=== PATIENT | female | born 1965 | race Caucasian/White ===

== ENCOUNTER 2017-01-10 19:42 | Outpatient (CLI) | payer MEDICARE | END 2017-01-10 19:43 | disposition home or self-care (01) | DX: E11.9 Type 2 diabetes mellitus without complications (principal); E55.9 Vitamin D deficiency, unspecified; I26.99 Other pulmonary embolism without acute cor pulmonale; E03.9 Hypothyroidism, unspecified ==

== ENCOUNTER 2017-04-28 08:00 | Outpatient (CLI) | payer MEDICARE ==
[2017-04-28 19:40] LABS: BUN - BLOOD UREA NITROGEN 14 mg/dL (6-20); CALCIUM 9.1 mg/dL (8.5-10.3); CARBON DIOXIDE - CO2 28 mmol/L (21-32); CHLORIDE 101 mmol/L (101-111); CREATININE 0.7 mg/dL (0.4-1.0); GFR - MDRD 88 (>89); GLUCOSE 164 mg/dL (70-100); SODIUM 137 mmol/L (135-145)
[2017-04-28 20:20] LABS: THYROID STIMULATING HORMONE 0.11 uIU/mL (0.34-5.60)
[2017-04-28 20:22] LABS: HEMOGLOBIN A1C 0.84 g/dL
== END 2017-04-28 08:01 | disposition home or self-care (01) ==
LOC: LAB.N 08:00
PROVIDERS: ATTEND Family Medicine
DX: E55.9 Vitamin D deficiency, unspecified (principal); E11.9 Type 2 diabetes mellitus without complications; E03.9 Hypothyroidism, unspecified
CPT/HCPCS: 36415; 80048; 83036; 84439; 84443

== ENCOUNTER 2017-08-15 13:52 | Outpatient (CLI) | payer MEDICARE ==
[2017-08-15 19:07] LABS: HEMOGLOBIN A1C 0.99 g/dL
[2017-08-15 19:17] LABS: CALCIUM 9.7 mg/dL (8.5-10.3); CREATININE 0.7 mg/dL (0.4-1.0); POTASSIUM 4.3 mmol/L (3.5-5.0)
[2017-08-15 19:41] LABS: THYROID STIMULATING HORMONE 2.92 uIU/mL (0.34-5.60)
== END 2017-08-15 13:53 | disposition home or self-care (01) ==
LOC: LAB.N 13:52
PROVIDERS: ATTEND Family Medicine
DX: E03.9 Hypothyroidism, unspecified (principal); E11.9 Type 2 diabetes mellitus without complications
CPT/HCPCS: 36415; 80048; 83036; 84439; 84443

== ENCOUNTER 2017-12-31 09:27 | Outpatient (CLI) | payer MEDICARE | END 2017-12-31 09:28 | disposition EMS.NT | LOC: EMS 09:27 | PROVIDERS: ATTEND Surgery | DX: S71.132A Puncture wound without foreign body, left thigh, initial encounter (principal); W55.03XA Scratched by cat, initial encounter ==

== ENCOUNTER 2018-01-16 08:00 | Outpatient (CLI) | payer MEDICARE ==
[2018-01-16 19:24] LABS: CALCIUM 9.4 mg/dL (8.5-10.3); CREATININE 0.6 mg/dL (0.4-1.0)
[2018-01-16 19:32] LABS: HB2 TOTAL 17.3 g/dL; HEMOGLOBIN A1C 1.01 g/dL; HEMOGLOBIN A1C % 7.5 % (4.6-6.2)
== END 2018-01-16 08:01 | disposition home or self-care (01) ==
LOC: LAB.N 08:00
PROVIDERS: ATTEND Family Medicine
DX: I10 Essential (primary) hypertension (principal); E11.9 Type 2 diabetes mellitus without complications
CPT/HCPCS: 36415; 80048; 83036

== ENCOUNTER 2018-04-23 08:00 | Outpatient (CLI) | payer MEDICARE ==
[2018-04-23 18:56] LABS: BASOPHILS % (AUTO) 0.5 %; EOSINOPHILS # (AUTO) 0.2 10^3/uL (0.0-0.7); HGB - HEMOGLOBIN 14.9 g/dL (12.0-16.0); LYMPHOCYTES % (AUTO) 31.3 %; MEAN CORPUSCULAR HEMOGLOBIN 27.3 pg (27.0-31.0); MEAN CORPUSCULAR HGB CONC 32.6 g/dL (32.0-36.0); MEAN CORPUSCULAR VOLUME 83.8 fL (81.0-99.0); MEAN PLATELET VOLUME 8.7 fL (7.9-10.8); MONOCYTES # (AUTO) 0.6 10^3/uL (0.0-1.0); MONOCYTES % (AUTO) 6.5 %; NEUTROPHILS # (AUTO) 5.7 10^3/uL (1.5-6.6); NEUTROPHILS % (AUTO) 59.7 %; PLT - PLATELET COUNT 247 10^3/uL (130-450); RED BLOOD COUNT 5.45 10^6/uL (4.20-5.40); RED CELL DISTRIBUTION WIDTH 15.5 % (12.0-15.0); WHITE BLOOD COUNT 9.5 x10^3/uL (4.8-10.8)
[2018-04-23 19:48] LABS: ALBUMIN 3.6 g/dL (3.2-5.5); ALBUMIN/GLOBULIN RATIO 0.9 (1.0-2.2); ALKALINE PHOSPHATASE 69 IU/L (42-121); ALT ALANINE AMINOTRANSFERASE 30 IU/L (10-60); AST ASPARTATE AMINOTRANSFERASE 31 IU/L (10-42); BILIRUBIN,TOTAL 0.7 mg/dL (0.2-1.0); BUN - BLOOD UREA NITROGEN 12 mg/dL (6-20); CALCIUM 9.4 mg/dL (8.5-10.3); CARBON DIOXIDE - CO2 30 mmol/L (21-32); CHLORIDE 100 mmol/L (101-111); CHOL/HDL RATIO 3.4 (<4.4); CHOLESTEROL 219 mg/dL; CREATININE 0.7 mg/dL (0.4-1.0); GFR - MDRD 88 (>89); GLUCOSE 135 mg/dL (70-100); HDL CHOLESTEROL 65 mg/dL; LDL CHOLESTEROL,CALCULATED 130 mg/dL; SODIUM 139 mmol/L (135-145); TOTAL PROTEIN 7.8 g/dL (6.7-8.2); VLDL CHOLESTEROL 24 mg/dL
[2018-04-23 19:56] LABS: THYROID STIMULATING HORMONE < 0.08 uIU/mL (0.34-5.60)
[2018-04-23 19:58] LABS: FREE T4 (FREE THYROXINE) 1.34 ng/dL (0.58-1.64)
[2018-04-23 20:33] LABS: HB2 TOTAL 15.8 g/dL; HEMOGLOBIN A1C 0.95 g/dL; HEMOGLOBIN A1C % 7.7 % (4.6-6.2)
== END 2018-04-23 08:01 ==
LOC: LAB.N 08:00
PROVIDERS: ATTEND Family Medicine
DX: E11.9 Type 2 diabetes mellitus without complications (principal); I10 Essential (primary) hypertension; E03.9 Hypothyroidism, unspecified
CPT/HCPCS: 36415; 80053; 80061; 83036; 83721; 84439; 84443; 85025

== ENCOUNTER 2018-06-19 08:00 | Outpatient (CLI) | payer MEDICARE ==
[2018-06-19 19:39] LABS: THYROID STIMULATING HORMONE 0.76 uIU/mL (0.34-5.60)
[2018-06-19 19:41] LABS: FREE T4 (FREE THYROXINE) 0.86 ng/dL (0.58-1.64)
== END 2018-06-19 08:01 | disposition home or self-care (01) ==
LOC: LAB.N 08:00
PROVIDERS: ATTEND Family Medicine
DX: E03.9 Hypothyroidism, unspecified (principal)
CPT/HCPCS: 36415; 84439; 84443

== ENCOUNTER 2018-08-31 13:20 | Outpatient (CLI) | payer MEDICARE ==
[2018-08-31 17:48] LABS: HB2 TOTAL 16.2 g/dL; HEMOGLOBIN A1C 0.93 g/dL; HEMOGLOBIN A1C % 7.4 % (4.6-6.2)
== END 2018-08-31 23:59 | disposition home or self-care (01) ==
LOC: LAB.N 13:20
PROVIDERS: ATTEND Family Medicine
DX: E11.9 Type 2 diabetes mellitus without complications (principal)
CPT/HCPCS: 36415; 83036

== ENCOUNTER 2019-02-15 08:00 | Outpatient (CLI) | payer MEDICARE ==
[2019-02-15 18:55] LABS: CALCIUM 9.5 mg/dL (8.5-10.3); CREATININE 0.6 mg/dL (0.4-1.0)
[2019-02-15 19:15] LABS: HB2 TOTAL 16.7 g/dL; HEMOGLOBIN A1C 1.03 g/dL; HEMOGLOBIN A1C % 7.8 % (4.6-6.2)
== END 2019-02-15 23:59 | disposition home or self-care (01) ==
LOC: LAB.N 08:00
PROVIDERS: ATTEND Physician Assistant Medical
DX: E66.9 Obesity, unspecified (principal); E11.9 Type 2 diabetes mellitus without complications; E03.9 Hypothyroidism, unspecified
CPT/HCPCS: 36415; 80048; 83036; 84443

== ENCOUNTER 2019-02-21 14:31 | Outpatient (CLI) | payer MEDICARE ==
[2019-02-21 19:51] LABS: BASOPHILS # (AUTO) 0.1 10^3/uL (0.0-0.1); BASOPHILS % (AUTO) 0.7 %; EOSINOPHILS # (AUTO) 0.1 10^3/uL (0.0-0.7); EOSINOPHILS % (AUTO) 1.5 %; HGB - HEMOGLOBIN 15.6 g/dL (12.0-16.0); LYMPHOCYTES # (AUTO) 2.1 10^3/uL (1.5-3.5); MEAN CORPUSCULAR HEMOGLOBIN 26.5 pg (27.0-31.0); MEAN CORPUSCULAR HGB CONC 31.2 g/dL (32.0-36.0); MEAN CORPUSCULAR VOLUME 84.9 fL (81.0-99.0); MONOCYTES # (AUTO) 0.8 10^3/uL (0.0-1.0); MONOCYTES % (AUTO) 11.3 %; NEUTROPHILS # (AUTO) 4.2 10^3/uL (1.5-6.6); NEUTROPHILS % (AUTO) 57.5 %; PLT - PLATELET COUNT 234 10^3/uL (130-450); RED BLOOD COUNT 5.88 10^6/uL (4.20-5.40); RED CELL DISTRIBUTION WIDTH 15.6 % (12.0-15.0); WHITE BLOOD COUNT 7.3 x10^3/uL (4.8-10.8)
[2019-02-21 20:00] LABS: ALBUMIN 3.6 g/dL (3.2-5.5); ALBUMIN/GLOBULIN RATIO 0.9 (1.0-2.2); BILIRUBIN,TOTAL 0.4 mg/dL (0.2-1.0); CREATININE 0.6 mg/dL (0.4-1.0); TOTAL PROTEIN 7.8 g/dL (6.7-8.2)
[2019-02-21 20:16] LABS: THYROID STIMULATING HORMONE 0.14 uIU/mL (0.34-5.60)
[2019-02-21 20:18] LABS: FREE T4 (FREE THYROXINE) 1.1 ng/dL (0.58-1.64)
== END 2019-02-21 23:59 | disposition home or self-care (01) ==
LOC: LAB.N 14:31
PROVIDERS: ATTEND Physician Assistant Medical
DX: E03.9 Hypothyroidism, unspecified (principal); K92.1 Melena
CPT/HCPCS: 36415; 80053; 84439; 84443; 85025

== ENCOUNTER 2019-07-11 11:49 | Outpatient (CLI) | payer MEDICARE ==
[2019-07-11 19:41] LABS: HB2 TOTAL 16.6 g/dL; HEMOGLOBIN A1C 1.04 g/dL; HEMOGLOBIN A1C % 7.9 % (4.6-6.2)
[2019-07-11 19:45] LABS: CALCIUM 9.4 mg/dL (8.5-10.3); CREATININE 0.7 mg/dL (0.4-1.0)
== END 2019-07-11 23:59 | disposition home or self-care (01) ==
LOC: LAB.N 11:49
PROVIDERS: ATTEND Physician Assistant Medical
DX: E11.9 Type 2 diabetes mellitus without complications (principal)
CPT/HCPCS: 36415; 80048; 83036

== ENCOUNTER 2019-07-30 11:10 | Outpatient (CLI) | payer MEDICARE ==
[2019-07-30 13:58] VITALS: BP 139/98
--- NOTE | 2019-07-30 13:58 | SLEEP CARE CONSULTATION ---
Information from patient questionnaire entered by Janice St. I have reviewed and concur with the information entered by Janice St. This document represents the service I personally performed and the decisions made by me, Maria Del Rosario English MD, [facility]. History of Present Illness Reason for Visit: New patient, Previously diagnosed sleep apnea Chief Complaint: reports: Other Duration of Symptoms: unknown Usual bedtime: 6039-2783 Time it takes to fall asleep: 10-15 minutes Snores at night: Yes Observed to quit breathing while asleep: No Sleeps alone due to snoring: No Number of times waking at night: 3 Reasons for waking at night: reports: Pain (legs), Bathroom Toss, Turn, or Twitch while sleeping: Yes Recalls having dreams: Yes Usually gets out of bed at: [id number] Feels refreshed in the morning: Yes (Both) Morning headache: No Sleepy or fatigued during the day: No Ever fallen asleep while driving: No Takes day naps: No Dreams during day naps: No Prior sleep studies: Yes Additional HPI information: I had the pleasure of seeing Ms. Chan today regarding the possibility of her having a sleep disorder. As you know, she is a 54 year old lady who complains of loud snore, observed apneas, frequent awakenings, and unrefreshed sleep. The patient is deaf and the interview is conducted through an online brick paver. The patient had an in-laboratory polysomnography and manual CPAP/BiPAP titration study here in 2008. The polysomnography showed severe obstructive sleep apnea- hypopnea with an AHI of 51.6. The patient was treated with BiPAP set at 20/10 cmH2O with oxygen bled in at 2 L/minute. She wore a ResMed Mirage FX mask size small. She was using the BiPAP consistently in 2013 when she was last seen. She indicates that she quit using the BiPAP about 2 years ago because the mask was uncomfortable. She also returned the oxygen concentrator. Subjective Initial [place] Sleepiness Scale score: 4 Past Medical History Past Medical History: reports: Hypertension, Diabetes (pre), Hypothyroidism Social History The patient's occupation is not employed. Patient is and lives in [place]. Have you smoked in the past 12 months: Yes Cigarettes per day (20/pack): 10 Years of smokin Quit date: on and off Smoking Pack Years: 10.5 Alcohol use: Yes Alcohol amount and frequency: 2-3 occassionaly Caffeine use: Yes Caffeine amount and frequency: 1-2 Family History Family history of sleep disordered breathing: No Allergies and Home Medications Drug allergies reviewed: Yes Home medication list reviewed: Yes Review of Systems Cardiovascular: reports: high blood pressure Respiratory: denies: shortness of breath, wheeze, sputum production, chronic co ugh, other Gastrointestinal: denies: heartburn, difficulty swallowing, nausea, vomitting, diarrhea, abdominal pain, other Urinary: denies: incontinence, frequency, urgency, impotence, other Neurological: denies: headaches, seizure, head trauma, disorientation, speech dysfunction, gait or balance problems, fainting or unconsciousness, other Psychiatric: denies: Attention Deficit Hyperactivity, anxiety, depression, mood disorder, claustrophobia, other Ear/Nose/Throat: reports: nasal congestion, sinus problems Endocrine: reports: thyroid disease, too hot or cold Musculoskeletal: reports: joint pain, muscle pain or cramping Immunologic: denies: sneezing, rash, itching, allergies to food or environment, other Physical Exam Vital signs obtained and entered by: Dr. English Blood Pressure: 139/98 Cuff size: regular Heart Rate: 86 O2 Saturation: 93 Height: 5 ft 6 in Weight: 315 lb Body Mass Index: 50.8 BMI Classification: Obesity Class 3 Neck circumference: 16.5 Mood/affect: normal HEENT: No craniofacial malformation Nostrils: patent to airflow Turbinates: normal Septum: midline Mouth and throat: narrow oropharynx Soft palate: long Hard palate: normal Uvula: normal Uvula visualization: 25% Mallampati Class III Tongue: normal in size Tonsils: small Chin and jaw: normal size and position Neck: normal w/o lymphadenopathy or thyromegaly Heart: regular rate and rhythm Lungs: clear bilaterally Abdomen: soft, non-tender Extremities: 1+ edema Neurologic: intact, no focal deficits Impression and Plan IMPRESSION: 1. Obstructive Sleep Apnea-Hypopnea Syndrome, severe, as previously diagnosed but presently untreated. The patient has also quit using the oxygen concentrator. She appears to be symptomatic for loud and irregular snoring, frequent awakenings during the night, and unrefreshed sleep. Narrow oropharynx and obesity are common predisposing factors for obstructive sleep apnea-hypopnea syndrome. Untreated obstructive sleep apnea can also cause hypertension. The patient would like to restart the positive airway pressure therapy with a more comfortable mask. I will order a new in-laboratory polysomnography which is required for Medicare coverage of the treatment. Plan: 1. Schedule polysomnography + manual CPAP/BiPAP titration study and return in 1 to 2 weeks after the study to discuss result and initiate therapy. 2. Avoid long distance driving or when feeling sleepy. 3. Avoid alcohol, sedative and muscle relaxant around bedtime. 4. Attempt to lose weight. I spent 100% of this 20 minute visit face to face with the patient with greater than 50% of this was spent time counseling the patient and coordination of care.
== END 2019-07-30 11:11 | disposition home or self-care (01) ==
LOC: SC 11:10
PROVIDERS: ATTEND Internal Medicine Pulmonary Disease
DX: G47.33 Obstructive sleep apnea (adult) (pediatric) (principal); F17.210 Nicotine dependence, cigarettes, uncomplicated; E66.9 Obesity, unspecified; Z68.43 Body mass index [BMI] 50.0-59.9, adult
CPT/HCPCS: 99203; G0463; 99212

== ENCOUNTER 2019-08-03 19:32 | Outpatient (CLI) | payer MEDICARE | END 2019-08-03 19:33 | disposition home or self-care (01) | LOC: SC 19:32 | PROVIDERS: ATTEND Internal Medicine Pulmonary Disease | DX: G47.33 Obstructive sleep apnea (adult) (pediatric) (principal); R09.02 Hypoxemia; R00.1 Bradycardia, unspecified | CPT/HCPCS: 95810 ==

== ENCOUNTER 2019-09-02 13:29 | Outpatient (CLI) | payer MEDICARE ==
--- NOTE | 2019-09-02 14:00 | SLEEP CARE CONSULTATION ---
Information from patient questionnaire entered by Isamar Olson. I have reviewed and concur with the information entered by Isamar Olson. This document represents the service I personally performed and the decisions made by me, Maria Del Rosario English MD, [facility]. History of Present Illness Initial [place] Sleepiness Scale score: 6 Current [place] Sleepiness Scale score: 3 Additional HPI information: HPI: returned for follow up of the sleep study she had on 08/03/19. An official court interpreter was utilized via video. The polysomnography showed that the patient had normal sleep efficiency. Despite moderate sleep fragmentation, the sleep architecture was normal as well. Respiratory monitoring showed moderate obstructive sleep apnea-hypopnea (AHI = 27.4) associated with frequent arousals, oxyhemoglobin desaturation and severe hypoxia (steve oxygen saturation of 52%). Baseline oxygen saturation was low. The respiratory events occurred mainly during REM sleep (supine AHI = 38.9; non- supine = 19.44). Snore was loud in intensity. There was no significant periodic leg movement of sleep. Cardiac rhythm was normal sinus rhythm with occasional sinus tachycardia. No abnormal behavior (parasomnia) observed during the night. The patient was informed of these findings. I explained to her the pathophysiology behind obstructive sleep apnea. We then spent quite a bit of time discussing different treatment options. For mild obstructive sleep apnea, surgery and oral appliance are alternatives to nasal CPAP therapy but in moderate or severe cases, nasal CPAP is the most effective and reliable treatment. After some discussion, she opted to try CPAP/BiPAP again. The patient used a BiPAP with supplemental oxygen for many years and quit 2 years ago because the mask did not fit. Allergies and Home Medications Drug allergies reviewed: Yes Home medication list reviewed: Yes Physical Exam Weight: 370 lb Impression and Plan IMPRESSION: 1. Obstructive Sleep Apnea-Hypopnea Syndrome, moderate, associated with severe hypoxemia and sleep fragmentation. Obviously this is the cause of the patients symptoms of unrefreshed sleep, and excessive daytime sleepiness. As mentioned above, the patient will be scheduled to come back for a manual CPAP/BiPAP titration study. The study will help tell whether need home oxygen therapy at night or not. PLAN: 1. Schedule a manual CPAP/BiPAP titration study. 2. Attempt to lose weight. 3. Be careful when driving until her sleepiness resolves completely on nasal CPAP therapy. 4. Return for follow up after the sleep study. I spent 100% of this visit face to face with the patient with greater than 50% of this was spent time counseling the patient and coordination of care.
== END 2019-09-02 13:30 | disposition home or self-care (01) ==
LOC: SC 13:29
PROVIDERS: ATTEND Internal Medicine Pulmonary Disease
DX: G47.33 Obstructive sleep apnea (adult) (pediatric) (principal)
CPT/HCPCS: 99213; G0463; 99212

== ENCOUNTER 2019-10-04 20:34 | Outpatient (CLI) | payer MEDICARE | END 2019-10-04 20:35 | disposition home or self-care (01) | LOC: SC 20:34 | PROVIDERS: ATTEND Internal Medicine Pulmonary Disease | DX: G47.33 Obstructive sleep apnea (adult) (pediatric) (principal); G47.61 Periodic limb movement disorder | CPT/HCPCS: 95811 ==

== ENCOUNTER 2019-10-28 10:23 | Outpatient (CLI) | payer MEDICARE ==
[2019-10-28 11:51] VITALS: BP 140/90
--- NOTE | 2019-10-28 11:51 | SLEEP CARE CONSULTATION ---
Information from patient questionnaire entered by Janice St. I have reviewed and concur with the information entered by Janice St. This document represents the service I personally performed and the decisions made by me, Ema Palmer RN, MSN, [employer]. History of Present Illness Initial [place] Sleepiness Scale score: 6 Current [place] Sleepiness Scale score: 1 Additional HPI information: SHIVA NGUYEN returns for follow up and results of the recently performed manual titration study. I explained the pathophysiology behind obstructive sleep apnea. I reviewed the impact of weight changes on sleep apnea and strongly recommended losing weight. After some discussion, the patient opted to go with the nasal CPAP therapy. Nasal autoCPAP set at [id number] will be ordered with rationale explained. I explained how CPAP machine works with sample devices [employer] [id number] and what to expect when using the machine. Using CPAP every night in order to get used to it was emphasized. Patient advised to put CPAP mask on before getting into bed so as not to fall asleep without CPAP. To assist acclimation to CPAP use, it could also be used for a short time during day while reading or watching TV. The patient was instructed to call the CPAP supplier to discuss any mechanical problem that may occur. If the mask given is uncomfortable or is difficult to keep on through the night even with adjustment, contact the CPAP supplier as many will replace with another mask style if notified before 30 days. If snoring or perceives is not getting enough air or too much air from the machine, notify this office. [facility] patient education PAP tips reviewed and given to patient. Patient counseled not drink alcohol less than 4 hours before bedtime as it can increase snoring and apnea. Patient does not drink alcohol. Patient was cau tioned about risks of drowsy driving until sleepiness symptoms resolve. Patient denies drowsy driving. [facility] Snoring and Sleep apnea pamphlet reviewed and given. Sleep Study - Results Polysomnography/Home Sleep Study results: The quality of the study is good. CPAP was initiated at 4 cmH2O and titrated up to CPAP at 14 cmH2O. CPAP at 13 cmH2O appeared to be optimal (AHI of 1.2 per hour on the pressure). There was supine REM sleep on the pressure. Oxygen saturation was mildly low due to the frequent residual respiratory events on lower. The patient appeared to have tolerated positive airway pressure therapy well. The patients sleep efficiency was slightly reduced due a few awakenings after the sleep onset.. The sleep architecture was abnormal for sleep fragmentation and reduced amount of time spent in slow wave sleep (N3). There was mild periodic leg movement of sleep. Cardiac rhythm was normal sinus rhythm without significant arrhythmia. No abnormal behavior (parasomnia) observed during the night. Allergies and Home Medications Known drug allergies: No Home medication list reviewed: Yes (no changes ) Allergy and home medication list: lisinopril metformin levothyoxine. Review of Systems Review of systems same as previous: Yes Physical Exam Blood Pressure: 140/90 Cuff size: long Heart Rate: 92 O2 Saturation: 92 Height: 5 ft 6 in Weight: 323 lb Body Mass Index: 52.1 BMI Classification: Morbidly Obese Impression and Plan 1. 1. Obstructive Sleep Apnea-Hypopnea Syndrome, moderate, with lowest oxygen saturation of 52% that is adequately controlled with CPAP at [id number]. Obviously this is the cause of the patients symptoms of unrefreshed sleep. Positive pressure therapy could benefit her hypertension. As mentioned above, the patient will be started on nasal autoCPAP therapy with pressure set at 13 cmH2O. Compliance guidelines also reviewed. A copy of compliance guidelines will be given for reference at check out. * CPAP pressure at 13 cmH2O * UPdate CPAP - last used 2010 * Notify me if snoring with mask or feeling that the pressure is too much or too little * Attempt to lose weight * Call this office if any problems using CPAP * Return for follow up in 6 weeks after use , or sooner if concerns arise Time Spent with Patient (minutes): 45 with on line foreign language interpreter as patient is deaf. I spent 100% of this visit face to face with the patient with greater than 50% of this was spent time counseling the patient and coordination of care.
== END 2019-10-28 10:24 | disposition home or self-care (01) ==
LOC: SC 10:23
PROVIDERS: ATTEND Nurse Practitioner Family
DX: G47.33 Obstructive sleep apnea (adult) (pediatric) (principal); E66.01 Morbid (severe) obesity due to excess calories; Z68.43 Body mass index [BMI] 50.0-59.9, adult
CPT/HCPCS: 99215; G0463; 99212

== ENCOUNTER 2019-12-29 22:46 | Emergency (ER) | payer MEDICARE ==
--- NOTE | 2019-12-29 22:55 | ED Physician Documentation ---
PD HPI HEENT - Stated complaint Stated Complaint: L SIDE FACE SWELLING - History obtained from History obtained from: Patient - History of Present Illness Timing - duration: Days (2) Timing - details: Gradual onset, Still present in ED Pain level now: 6 Location: Left ear Improves: Nothing Worsens: Swalllowing, Other (movement (turning neck, particularly rotation to left)) Associated symptoms: No: Fever, Congestion, Rhinorrhea, Trismus, Unable to swallow, Swollen nodes, Facial swelling, Headache, Cough Similar symptoms before: Has not had sx before Recently seen: Not recently seen - Additional information Additional information: c/o 2 days of pain and swelling left side of neck and around left ear. Denies h/o similar symptoms. she denies sore throat although swallowing does make the pain worse as does rotating head to left. Review of Systems Constitutional: denies: Fever Ears: reports: Ear pain (predominantly around the left ear rather than left ear pain per se). denies: Drainage/discharge Nose: denies: Rhinorrhea / runny nose, Congestion, Sinus pressure / pain Throat: denies: Dental pain / toothache, Sore throat Skin: denies: Rash Musculoskeletal: reports: Neck pain Neurologic: denies: Focal weakness, Numbness, Headache PD PAST MEDICAL HISTORY - Past Medical History Past Medical History: Yes Cardiovascular: Hypertension Endocrine/Autoimmune: Type 2 diabetes, HyPOthyroidism Other Past Medical History: deaf - Present Medications Home Medications: Ambulatory Orders Medication Instructions Recorded Confirmed Amox/Clav 875/125 [Augmentin] 1 each PO Q12H #14 tablet 12/29/19 Hydrocodone/Acetaminophen 1 - 2 each PO Q6H PRN #14 tablet 12/29/19 [Hydrocodon-Acetaminophen 5-325] Levothyroxine [Synthroid] 150 mcg 12/29/19 Lisinopril [Prinivil] 12/29/19 metFORMIN [Glucophage] 1,000 mg 12/29/19 - Allergies Allergies/Adverse Reactions: Allergies Allergy/AdvReac Type Severity Reaction Status Date / Time No Known Drug Allergies Allergy Verified 12/29/19 23:07 PD ED PE NORMAL - Vitals Vital signs reviewed: Yes - General General: Alert and oriented X 3, No acute distress, Well developed/nourished - HEENT HEENT: Ears normal (only left ear was examined: hearing aid in place, removed by patient. normal external exam, no tenderness with traction on pinna nor with pressure to tragus. External canal and TM are normal), Moist mucous membranes, Pharynx benign (no asymetry, no erythema, no exudate, no swelling), Other (no visible facial or neck swelling or asymmetry) - Neck Neck: Supple, no meningeal sign, No bony TTP, No adenopathy, Thyroid normal - Derm Derm: Normal color, Warm and dry, No rash Results - Vitals Vitals: Vital Signs - 24 hr 12/29/19 22:59 Temperature 36.8 C Heart Rate 90 Respiratory 18 Rate Blood Pressure 143/81 H O2 Saturation 95 Oxygen O2 Source Room air PD MEDICAL DECISION MAKING - ED course Complexity details: considered differential, d/w patient ED course: I offered to use [employer] for translation (sign language), but patient says she can read lips well and declines this service. She c/o left-sided neck swelling and pain that is also in area surrounding her left ear. There is no visible nor palpable abscess, no erythema, no visible swelling. The exam is complicated by her body habitus. Differential includes, but not limited to, musculoskeletal etiology, early mastoiditis, early neck infection including abscess. Abscess and mastoiditis unlikely given lack of findings on exam. I considered CT neck to investigate these possible etiologies, but given her lack of exam findings, it is unlikely that findings would need emergent intervention beyond antibiotic coverage. Weighing risks/benefits of performing these tests emergently (CT would best be done with IV contrast, thus necessitating IV as well as blood tests to check renal function), my recommendation is trial of PO antibiotic along with prescription analgesic with instructions to return if worse and f/u with PMD if not worsening, but not significantly improving within 3 or more days. Departure - Departure Disposition: 01 Home, Self Care Clinical Impression: Neck pain Condition: Good Instructions: ED Neck Pain No Trauma Follow-Up: Pedrito Coronado PA-C [Primary Care Provider] - Prescriptions: Amox/Clav 875/125 [Augmentin] 1 each PO Q12H #14 tablet Hydrocodone/Acetaminophen [Hydrocodon-Acetaminophen 5-325] 1 - 2 each PO Q6H PRN #14 tablet PRN Reason: pain Discharge Date/Time: 12/29/19 23:34
[2019-12-29 23:02] VITALS: BP 143/81
[2019-12-29] MEDS: AMOX/CLAV 875 MG/125 MG TABLET PO STA (23:30)
[2019-12-29] MEDS: HYDROcod/ACETAM 5/325 MG TABLET PO STA (23:30)
== END 2019-12-29 23:34 | disposition home or self-care (01) ==
LOC: ED 22:46
DX: M54.2 Cervicalgia (principal); I10 Essential (primary) hypertension; E11.9 Type 2 diabetes mellitus without complications; E03.9 Hypothyroidism, unspecified; H91.90 Unspecified hearing loss, unspecified ear
CPT/HCPCS: 99282; 99283; A9270

== ENCOUNTER 2020-05-12 13:43 | Outpatient (CLI) | payer MEDICARE ==
--- NOTE | 2020-05-12 14:19 | SLEEP CARE CONSULTATION ---
Information from patient questionnaire entered by Isamar Olson. I have reviewed and concur with the information entered by Isamar Olson. This document represents the service I personally performed and the decisions made by me, Maria Del Rosario English MD, [facility]. History of Present Illness Service Date and Time: 05/12/2020 1343 Previous diagnosis: Moderate, Obstructive Sleep Apnea-Hypopnea Syndrome AHI: 27.4 (in 2018)(51.6 in 2008) Reason for follow up: one month Equipment type: CPAP Mask style: Nasal Prior sleep studies: Yes Year and Where: 2018 and 2008 - [facility] Type of Sleep Study: Polysomnography HPI additional information: HPI: Ms. Chan returns today to follow up on the nasal CPAP therapy. An geophysical support specialist was utilized via video. She was diagnosed to have moderate obstructive sleep apnea-hypopnea syndrome. The patient wears with a nasal mask. She reports using the device nightly and all through the night. The compliance, however, data show usage in 28 out of the past 30 nights, averaging 6.2 hours a night. The > 4 hour compliance rate for the past 30 days is 90%. She complained of dry mouth but no particular problem with the device such as soreness on the face, epistaxis, nasal congestion or headache. She thinks that the pressure of 13 cmH2O is comfortable. On the CPAP therapy she notices improvement in her sleep quality, and that she wakes up feeling fresher in the morning and more awake/alert during the day. The [place] Sleepiness Scale score 0. The average residual AHI is 0.5 (was 1.5); and air leak, 3.9 (was 6.2) L/min. Sleep Study - Results Prior sleep studies: Yes CPAP Compliance Data - Data Reviewed with Patient Average duration of nightly device use: 6.25 Compliance rate %: 90 Current pressure setting (cmH2O): 13 Average residual AHI: 0.5 Subjective Initial [place] Sleepiness Scale score: 6 (in 2008) Allergies and Home Medications Drug allergies reviewed: Yes Home medication list reviewed: Yes Review of Systems Review of systems same as previous: Yes Physical Exam Vital signs obtained and entered by: To minimize unnecessary CVOVID-19 exposure, physical exam was deferred. Height: 5 ft 6 in Impression and Plan IMPRESSION: 1. Obstructive Sleep Apnea-Hypopnea Syndrome, moderate, with the patient doing well on nasal CPAP therapy. She has good compliance and significant clinical improvement. The current pressure appears effective and comfortable. Her mask fits well. Overall, she is very satisfied with treatment and plans to continue with it long-term. No adjustment is necessary today. PLAN: 1. Continue with CPAP set at 13 cmH2O. 2. Try to lose weight 3. Return for follow up in a year or earlier if there is any problem. Visit Type: In Office Time Spent with Patient (minutes): 15 Provider Statement: I spent 100% of the Face to Face Visit with the patient with greater than 50% spent counseling the patient and coordination of care.
== END 2020-05-12 13:44 | disposition home or self-care (01) ==
LOC: SC 13:43
PROVIDERS: ATTEND Internal Medicine Pulmonary Disease
DX: G47.33 Obstructive sleep apnea (adult) (pediatric) (principal)
CPT/HCPCS: 99213; G0463; 99212

== ENCOUNTER 2020-06-04 08:26 | Outpatient (CLI) | payer MEDICARE ==
[2020-06-04 08:46] LABS: BASOPHILS # (AUTO) 0.1 10^3/uL (0.0-0.1); BASOPHILS % (AUTO) 0.9 %; EOSINOPHILS # (AUTO) 0.3 10^3/uL (0.0-0.7); EOSINOPHILS % (AUTO) 3.1 %; LYMPHOCYTES # (AUTO) 3.2 10^3/uL (1.5-3.5); LYMPHOCYTES % (AUTO) 35.3 %; MEAN CORPUSCULAR HEMOGLOBIN 28.6 pg (27.0-31.0); MEAN CORPUSCULAR HGB CONC 31.9 g/dL (32.0-36.0); MEAN CORPUSCULAR VOLUME 89.8 fL (81.0-99.0); MEAN PLATELET VOLUME 9.6 fL (7.9-10.8); MONOCYTES # (AUTO) 0.7 10^3/uL (0.0-1.0); MONOCYTES % (AUTO) 7.4 %; NEUTROPHILS # (AUTO) 4.8 10^3/uL (1.5-6.6); NEUTROPHILS % (AUTO) 53.1 %; PLT - PLATELET COUNT 257 10^3/uL (130-450); RED BLOOD COUNT 4.89 10^6/uL (4.20-5.40); RED CELL DISTRIBUTION WIDTH 14.3 % (12.0-15.0); WHITE BLOOD COUNT 9.1 x10^3/uL (4.8-10.8)
[2020-06-04 09:05] LABS: ALBUMIN 3.7 g/dL (3.2-5.5); ALBUMIN/GLOBULIN RATIO 0.9 (1.0-2.2); ALKALINE PHOSPHATASE 69 IU/L (42-121); ALT ALANINE AMINOTRANSFERASE 30 IU/L (10-60); AST ASPARTATE AMINOTRANSFERASE 25 IU/L (10-42); BILIRUBIN,TOTAL 0.6 mg/dL (0.2-1.0); BUN - BLOOD UREA NITROGEN 16 mg/dL (6-20); CALCIUM 9.1 mg/dL (8.5-10.3); CARBON DIOXIDE - CO2 27 mmol/L (21-32); CHLORIDE 101 mmol/L (101-111); CHOL/HDL RATIO 3.4 (<4.4); CHOLESTEROL 219 mg/dL; CREATININE 0.8 mg/dL (0.4-1.0); GLUCOSE 131 mg/dL (70-100); HDL CHOLESTEROL 65 mg/dL; LDL CHOLESTEROL,CALCULATED 128 mg/dL; SODIUM 139 mmol/L (135-145); TOTAL PROTEIN 7.8 g/dL (6.7-8.2); VLDL CHOLESTEROL 26 mg/dL
[2020-06-04 12:05] LABS: HEMOGLOBIN A1c% 7.7 % (4.27-6.07)
== END 2020-06-04 08:27 | disposition home or self-care (01) ==
LOC: LAB 08:26
PROVIDERS: ATTEND Nurse Practitioner Family
DX: I10 Essential (primary) hypertension (principal); E11.9 Type 2 diabetes mellitus without complications; D64.9 Anemia, unspecified; E03.9 Hypothyroidism, unspecified
CPT/HCPCS: 36415; 80053; 80061; 83036; 83721; 84443; 85025

== ENCOUNTER 2020-06-14 09:14 | Outpatient (CLI) | payer MEDICARE ==
--- NOTE | 2020-06-15 14:46 | Mammography Report ---
BILATERAL DIGITAL SCREENING MAMMOGRAM 3D/2D: 06/14/2020 CLINICAL: Routine screening. Comparison is made to exams dated: 02/12/2015 mammogram and 08/01/2012 mammogram - [facility]. The tissue of both breasts is predominantly fatty. No significant masses, calcifications, or other findings are seen in either breast. There has been no significant interval change. IMPRESSION: NEGATIVE There is no mammographic evidence of malignancy. A 1 year screening mammogram is recommended. This exam was interpreted at Station ID: [id number]. NOTE: For mammograms, a report in lay terms will be sent to the patient. Approximately 15% of breast malignancies will not be visualized mammographically. In the management of a palpable breast mass, a negative mammogram must not discourage biopsy of a clinically suspicious lesion. Electronically Signed By: Maribel pena/fito:06/15/2020 08:36:38 ACR BI-RADS Category 1: Negative 3341F PARENCHYMAL PATTERN: (F) - The breast(s) demonstrate(s) diffuse fatty replacement. BI-RADS CATEGORY: (1) - 1 RECOMMENDATION: (ANNUAL) - Recommend routine annual screening mammography. [id number] 1 year screening LATERALITY: (B)
== END 2020-06-14 09:15 | disposition home or self-care (01) ==
LOC: DI 09:14
DX: Z12.31 Encounter for screening mammogram for malignant neoplasm of breast (principal)
CPT/HCPCS: 77063; 77067

== ENCOUNTER 2020-08-28 06:30 | Day surgery (SDC) | payer MEDICARE ==
[2020-08-28] MEDS ORDERED: LACTATED RINGERS 1,000 ML IV ONE (06:42)
[2020-08-28] MEDS ORDERED: PROPOFOL 500 MG/50 ML 1,000 MG/100 ML VIAL ONE (07:24)
[2020-08-28] MEDS ORDERED: LIDOCAINE-MPF 2% 5 ML VIAL ONE ×2 (07:25)
--- NOTE | 2020-08-28 07:25 | ANESTHESIA ---
Pre-Anesthesia VS, & Labs - Diagnosis Routine screening - Procedure Colonoscopy Vital Signs: Temp Pulse Resp BP Pulse Ox 36 C L 98 14 128/81 H 94 08/28/20 06:47 08/28/20 06:47 08/28/20 06:47 08/28/20 06:47 08/28/20 06:47 Height: 5 ft 7 in Weight (kg): 140 kg Body Mass Index: 48.3 BMI Classification: Morbidly Obese - NPO >8 hours - Is Patient ?: No Home Medications and Allergies Levothyroxine [Synthroid] 150 mcg PO DAILY 12/29/19 Lisinopril [Prinivil] 10 mg PO DAILY 12/29/19 metFORMIN [Glucophage] 1,000 mg PO DAILY 12/29/19 Allergies/Adverse Reactions: Allergies Allergy/AdvReac Type Severity Reaction Status Date / Time No Known Drug Allergies Allergy Verified 12/29/19 23:07 Anes History & Medical History - Anesthetic History Anesthesia Complications: reports: No previous complications Family history of Anesthesia Complications: Denies Family history of Malignant Hyperthermia: Denies - Medical History Cardiovascular: reports: Hypertension (States walks about a mile every morning) Pulmonary: reports: None Gastrointestinal: reports: None Urinary: reports: None, Chronic bladder infection Neuro: reports: Other (Deaf, reads lips) Musculoskeletal: reports: Other (Super morbid obesity with BMI of 48) Endocrine/Autoimmune: reports: Type 2 diabetes, HyPOthyroidism - Surgical History Gynecologic: Hysterectomy Exam General: Alert, Oriented x3, Cooperative, No acute distress Dental: WNL Mouth Openin Fingerbreadth Neck Mobility: Reduced Mallampati classification: III Thyromental Distance: less than 4 cm Respiratory: Lungs clear, Wheezing, Expiration (Expiratory wheezing heard by nurse. None by me. Patient had coughed several times clearing the wheezing.) Cardiovascular: Regular rate, Normal S1, Normal S2 Plan Anesthesia Type: MAC Consent for Procedure(s) Verified and Reviewed: Yes Code Status: Attempt Resuscitation ASA classification: 3-Severe systemic disease Is this case an emergency?: No (Discussed Anesthesia, consent signed.)
[2020-08-28] MEDS ORDERED: MIDAZOLAM 2 MG/2 ML VIAL ONE (07:41)
[2020-08-28] MEDS ORDERED: LACTATED RINGERS 450 ML IV ONE (08:24)
--- NOTE | 2020-08-28 08:51 | ANESTHESIA POST OP EVALUATION ---
Anesthesia Post Eval - Post Anesthesia Eval Vitals: Last Vital Signs Temp 36.4 C L 08/28/20 08:42 Pulse 87 08/28/20 08:42 Resp 18 08/28/20 08:42 BP 134/98 H 08/28/20 08:42 Pulse Ox 96 08/28/20 08:42 CV Function Including HR & BP: positive: Stable Pain Control: positive: Satisfactory Nausea & Vomiting: positive: Negative Mental Status: positive: Baseline Respiratory Status: Airway Patent Hydration Status: Satisfactory Anesthesia Complications: positive: None
[2020-08-28 09:12] VITALS: BP 116/89
== END 2020-08-28 06:31 | disposition home or self-care (01) ==
LOC: SDS 06:30
PROVIDERS: ATTEND Surgery
PROC: 0DBN8ZZ Excision of Sigmoid Colon, Via Natural or Artificial Opening Endoscopic (ICD-10-PCS; 2020-08-28)
PROC: 0DBP8ZZ Excision of Rectum, Via Natural or Artificial Opening Endoscopic (ICD-10-PCS; principal; 2020-08-28 07:30)
DX: Z12.11 Encounter for screening for malignant neoplasm of colon (principal); K63.5 Polyp of colon; D12.8 Benign neoplasm of rectum; G47.33 Obstructive sleep apnea (adult) (pediatric); I10 Essential (primary) hypertension; E11.9 Type 2 diabetes mellitus without complications; Z79.84 Long term (current) use of oral hypoglycemic drugs; F17.210 Nicotine dependence, cigarettes, uncomplicated; E03.9 Hypothyroidism, unspecified
CPT/HCPCS: 45380; J7120

== ENCOUNTER 2020-11-26 11:06 | Outpatient (CLI) | payer MEDICARE ==
[2020-11-26 11:32] LABS: CALCIUM 9.7 mg/dL (8.5-10.3); POTASSIUM 4.2 mmol/L (3.5-5.0)
[2020-11-26 11:46] LABS: ESTIMATED AVERAGE GLUCOSE 171 mg/dL (70-100); HEMOGLOBIN A1c% 7.6 % (4.27-6.07)
== END 2020-11-26 11:07 | disposition home or self-care (01) ==
LOC: LAB 11:06
PROVIDERS: ATTEND Nurse Practitioner Family
DX: E11.9 Type 2 diabetes mellitus without complications (principal)
CPT/HCPCS: 36415; 80048; 83036

== ENCOUNTER 2021-02-26 10:41 | Outpatient (CLI) | payer MEDICARE ==
[2021-02-26 11:14] LABS: CALCIUM 9.4 mg/dL (8.5-10.3); CREATININE 1.1 mg/dL (0.4-1.0); POTASSIUM 4.5 mmol/L (3.5-5.0)
[2021-02-26 12:58] LABS: ESTIMATED AVERAGE GLUCOSE 183 mg/dL (70-100)
== END 2021-02-26 10:42 | disposition home or self-care (01) ==
LOC: LAB 10:41
PROVIDERS: ATTEND Nurse Practitioner Family
DX: E11.9 Type 2 diabetes mellitus without complications (principal)
CPT/HCPCS: 36415; 80048; 83036

== ENCOUNTER 2021-06-01 14:51 | Outpatient (CLI) | payer MEDICARE ==
[2021-06-01 18:35] LABS: BASOPHILS # (AUTO) 0.1 10^3/uL (0.0-0.1); BASOPHILS % (AUTO) 0.7 %; EOSINOPHILS # (AUTO) 0.2 10^3/uL (0.0-0.7); EOSINOPHILS % (AUTO) 1.8 %; HCT - HEMATOCRIT 47.2 % (37.0-47.0); HGB - HEMOGLOBIN 14.7 g/dL (12.0-16.0); LYMPHOCYTES # (AUTO) 3.4 10^3/uL (1.5-3.5); LYMPHOCYTES % (AUTO) 34.5 %; MEAN CORPUSCULAR HEMOGLOBIN 27.2 pg (27.0-31.0); MEAN CORPUSCULAR HGB CONC 31.1 g/dL (32.0-36.0); MEAN CORPUSCULAR VOLUME 87.4 fL (81.0-99.0); MEAN PLATELET VOLUME 10.4 fL (7.9-10.8); MONOCYTES # (AUTO) 0.7 10^3/uL (0.0-1.0); MONOCYTES % (AUTO) 7.3 %; NEUTROPHILS # (AUTO) 5.4 10^3/uL (1.5-6.6); NEUTROPHILS % (AUTO) 55.5 %; PLT - PLATELET COUNT 323 10^3/uL (130-450); RED CELL DISTRIBUTION WIDTH 14.4 % (12.0-15.0); WHITE BLOOD COUNT 9.8 x10^3/uL (4.8-10.8)
[2021-06-01 18:39] LABS: ALBUMIN 3.8 g/dL (3.2-5.5); ALBUMIN/GLOBULIN RATIO 0.8 (1.0-2.2); ALKALINE PHOSPHATASE 67 IU/L (42-121); ALT ALANINE AMINOTRANSFERASE 26 IU/L (10-60); AST ASPARTATE AMINOTRANSFERASE 22 IU/L (10-42); BILIRUBIN,TOTAL 0.6 mg/dL (0.2-1.0); BUN - BLOOD UREA NITROGEN 23 mg/dL (6-20); CALCIUM 9.8 mg/dL (8.5-10.3); CARBON DIOXIDE - CO2 29 mmol/L (21-32); CHLORIDE 98 mmol/L (101-111); CHOL/HDL RATIO 3.6 (<4.4); CHOLESTEROL 255 mg/dL; GFR - MDRD 58 (>89); GLUCOSE 88 mg/dL (70-100); HDL CHOLESTEROL 70 mg/dL; LDL CHOLESTEROL,CALCULATED 154 mg/dL; LDL/HDL RATIO 2.2 (<4.4); POTASSIUM 4.3 mmol/L (3.5-5.0); SODIUM 139 mmol/L (135-145); TOTAL PROTEIN 8.3 g/dL (6.7-8.2); TRIGLYCERIDES 153 mg/dL; VLDL CHOLESTEROL 31 mg/dL
[2021-06-01 18:49] LABS: CREATININE,URINE 156.7 mg/dL; MICROALBUM/CREATININE RATIO,UR 5.7 ug/mg (<30.0); MICROALBUMIN,URINE 0.9 mg/dL (0-300.0)
[2021-06-01 18:51] LABS: THYROID STIMULATING HORMONE 0.12 uIU/mL (0.34-5.60)
[2021-06-01 19:47] LABS: FREE T4 (FREE THYROXINE) 1.16 ng/dL (0.58-1.64)
[2021-06-01 20:51] LABS: ESTIMATED AVERAGE GLUCOSE 151 mg/dL (70-100); HEMOGLOBIN A1c% 6.9 % (4.27-6.07)
== END 2021-06-01 23:59 | disposition home or self-care (01) ==
LOC: LAB.WCP 14:51
PROVIDERS: ATTEND Nurse Practitioner
DX: E11.9 Type 2 diabetes mellitus without complications (principal)
CPT/HCPCS: 36415; 80053; 80061; 82043; 82570; 83036; 83721; 84439; 84443; 85025

== ENCOUNTER 2021-08-25 09:21 | Outpatient (CLI) | payer MEDICARE ==
--- NOTE | 2021-08-26 13:37 | Mammography Report ---
BILATERAL DIGITAL SCREENING MAMMOGRAM 3D/2D: 08/25/2021 CLINICAL: Routine screening. Comparison is made to exams dated: 06/14/2020 mammogram, 02/12/2015 mammogram, and 08/01/2012 mammogram - [facility]. The tissue of both breasts is predominantly fatty. No significant masses, calcifications, or other findings are seen in either breast. There has been no significant interval change. IMPRESSION: NEGATIVE There is no mammographic evidence of malignancy. A 1 year screening mammogram is recommended. This exam was interpreted at Station ID: [id number]. NOTE: For mammograms, a report in lay terms will be sent to the patient. Approximately 15% of breast malignancies will not be visualized mammographically. In the management of a palpable breast mass, a negative mammogram must not discourage biopsy of a clinically suspicious lesion. Electronically Signed By: Vincent Morales M.D., jr/fito:08/25/2021 13:05:42 ACR BI-RADS Category 1: Negative 3341F PARENCHYMAL PATTERN: (F) - The breast(s) demonstrate(s) diffuse fatty replacement. BI-RADS CATEGORY: (1) - 1 RECOMMENDATION: (ANNUAL) - Recommend routine annual screening mammography. [id number] 1 year screening LATERALITY: (B)
== END 2021-08-25 09:22 | disposition home or self-care (01) ==
LOC: DI 09:21
DX: Z12.31 Encounter for screening mammogram for malignant neoplasm of breast (principal)

== ENCOUNTER 2022-09-16 10:29 | Outpatient (CLI) | payer MEDICARE ==
[2022-09-16 10:52] LABS: BASOPHILS # (AUTO) 0.1 10^3/uL (0.0-0.1); BASOPHILS % (AUTO) 0.6 %; EOSINOPHILS # (AUTO) 0.2 10^3/uL (0.0-0.7); EOSINOPHILS % (AUTO) 1.4 %; HCT - HEMATOCRIT 48.6 % (37.0-47.0); HGB - HEMOGLOBIN 13.6 g/dL (12.0-16.0); LYMPHOCYTES # (AUTO) 2.4 10^3/uL (1.5-3.5); MEAN CORPUSCULAR HEMOGLOBIN 23.1 pg (27.0-31.0); MEAN CORPUSCULAR VOLUME 82.5 fL (81.0-99.0); MEAN PLATELET VOLUME 9.1 fL (7.9-10.8); MONOCYTES # (AUTO) 0.7 10^3/uL (0.0-1.0); MONOCYTES % (AUTO) 6.2 %; NEUTROPHILS # (AUTO) 7.3 10^3/uL (1.5-6.6); NEUTROPHILS % (AUTO) 68.6 %; PLT - PLATELET COUNT 355 10^3/uL (130-450); RED BLOOD COUNT 5.89 10^6/uL (4.20-5.40); RED CELL DISTRIBUTION WIDTH 16.5 % (12.0-15.0); WHITE BLOOD COUNT 10.6 x10^3/uL (4.8-10.8)
[2022-09-16 10:57] LABS: SLIDE REVIEW? Indicated
[2022-09-16 11:06] LABS: CREATININE,URINE 296.8 mg/dL; MICROALBUMIN,URINE 1.2 mg/dL (0-300.0)
[2022-09-16 11:09] LABS: ALBUMIN 3.5 g/dL (3.2-5.5); ALBUMIN/GLOBULIN RATIO 0.7 (1.0-2.2); ALKALINE PHOSPHATASE 71 IU/L (42-121); ALT ALANINE AMINOTRANSFERASE 14 IU/L (10-60); AST ASPARTATE AMINOTRANSFERASE 16 IU/L (10-42); BILIRUBIN,TOTAL 0.6 mg/dL (0.2-1.0); BUN - BLOOD UREA NITROGEN 26 mg/dL (6-20); CALCIUM 9.4 mg/dL (8.5-10.3); CARBON DIOXIDE - CO2 33 mmol/L (21-32); CHLORIDE 94 mmol/L (101-111); CHOL/HDL RATIO 2.8 (<4.4); CHOLESTEROL 169 mg/dL; CREATININE 1.1 mg/dL (0.4-1.0); GFR - MDRD 51 (>89); GLUCOSE 173 mg/dL (70-100); HDL CHOLESTEROL 61 mg/dL; LDL CHOLESTEROL,CALCULATED 95 mg/dL; LDL/HDL RATIO 1.6 (<4.4); POTASSIUM 4.9 mmol/L (3.5-5.0); SODIUM 135 mmol/L (135-145); TOTAL PROTEIN 8.2 g/dL (6.7-8.2); TRIGLYCERIDES 66 mg/dL; VLDL CHOLESTEROL 13 mg/dL
[2022-09-16 11:22] LABS: THYROID STIMULATING HORMONE 0.61 uIU/mL (0.34-5.60)
[2022-09-16 11:24] LABS: FREE T4 (FREE THYROXINE) 1.1 ng/dL (0.58-1.64); PLATELET ESTIMATE, MANUAL NORMAL (130-450,000) (NORMAL); RBC MORPHOLOGY (MULTIPLE) 1+ HYPOCHROMASIA (NORMAL)
[2022-09-16 11:25] LABS: PLATELET MORPHOLOGY NORMAL APPEARANCE (NORMAL); WBC MORPHOLOGY (MULTIPLE) NORMAL APPEARANCE (NORMAL)
[2022-09-16 12:01] LABS: ESTIMATED AVERAGE GLUCOSE 203 mg/dL (70-100); HEMOGLOBIN A1c% 8.7 % (4.27-6.07)
== END 2022-09-16 10:30 | disposition home or self-care (01) ==
LOC: LAB 10:29
PROVIDERS: ATTEND Nurse Practitioner
DX: I10 Essential (primary) hypertension (principal); E03.9 Hypothyroidism, unspecified; E78.5 Hyperlipidemia, unspecified; E11.9 Type 2 diabetes mellitus without complications
CPT/HCPCS: 36415; 80053; 80061; 82043; 82570; 83036; 83721; 84439; 84443; 85025

== ENCOUNTER 2022-10-03 18:51 | Outpatient (CLI) | payer MEDICARE ==
--- NOTE | 2022-10-04 14:09 | Ultrasound Report ---
PROCEDURE: Retroperitoneal INDICATIONS: CKD TECHNIQUE: Real-time scanning was performed of the retroperitoneal organs, with image documentation. COMPARISON: None. FINDINGS: Kidneys: Kidneys are normal in size. Right kidney measures 12.5 cm long; left kidney measures 12.3 cm long. Right renal cortical thickness is 1.6 cm; left renal cortical thickness is 1.4 cm. No bijan d masses, hydronephrosis, or nephrolithiasis. Bladder: Pre-void bladder volume is 144 mL. Post-void residual is 0 mL. Pre-void images demonstrat e no intraluminal masses or stones. On pre-void images, bilateral ureteral jets are noted with color Doppler interrogation. (Of note, ureteral jets may not be detectable in up to 25% of cases due to i nsufficient differences in specific gravity between ureteral and bladder urine). Miscellaneous: No free abdominal fluid. IMPRESSION: No obstruction. Reviewed by: Alice Schmidt MD on 10/04/2022 2:08 PM PST Approved by: Alice Schmidt MD on 10/04/2022 2:08 PM PST Station ID: [id number]
== END 2022-10-03 18:52 | disposition home or self-care (01) ==
LOC: DI 18:51
PROVIDERS: ATTEND Physician Assistant
DX: N18.31 Chronic kidney disease, stage 3a (principal)

== ENCOUNTER 2022-10-17 09:27 | Outpatient (CLI) | payer MEDICARE ==
[2022-10-17 10:10] LABS: CALCIUM 9.8 mg/dL (8.5-10.3); CREATININE 1.1 mg/dL (0.4-1.0); POTASSIUM 4.6 mmol/L (3.5-5.0)
== END 2022-10-17 09:28 | disposition home or self-care (01) ==
LOC: LAB 09:27
PROVIDERS: ATTEND Physician Assistant
DX: N18.31 Chronic kidney disease, stage 3a (principal)
CPT/HCPCS: 36415; 80048

== ENCOUNTER 2022-12-16 10:16 | Outpatient (CLI) | payer MEDICARE ==
[2022-12-16 10:40] LABS: ALBUMIN 3.4 g/dL (3.2-5.5); ALBUMIN/GLOBULIN RATIO 0.7 (1.0-2.2); BILIRUBIN,TOTAL 0.7 mg/dL (0.2-1.0); CALCIUM 9.2 mg/dL (8.5-10.3); POTASSIUM 4.2 mmol/L (3.5-5.0)
[2022-12-16 11:58] LABS: ESTIMATED AVERAGE GLUCOSE 169 mg/dL (70-100); HEMOGLOBIN A1c% 7.5 % (4.27-6.07)
== END 2022-12-16 10:17 | disposition home or self-care (01) ==
LOC: LAB 10:16
PROVIDERS: ATTEND Physician Assistant
DX: E11.22 Type 2 diabetes mellitus with diabetic chronic kidney disease (principal); N18.31 Chronic kidney disease, stage 3a
CPT/HCPCS: 36415; 80053; 83036

== ENCOUNTER 2023-01-17 14:48 | Outpatient (CLI) | payer MEDICARE ==
--- NOTE | 2023-01-18 11:54 | Ultrasound Report ---
PROCEDURE: Ext Limited Non Vascular INDICATIONS: BILATERAL WRIST NODULES TECHNIQUE: Real-time scanning was performed of the bilateral wrists, with image documentation. COMPARISON: None. FINDINGS: Right wrist: At patient's reported area of palpable lump, a 4 x 5 x 2 mm hypoechoic focus is seen in dorsal subcutaneous soft tissue without internal vascularity. Left wrist: 4 x 4 by 2 mm hypoechoic focus is noted in dorsal wrist subcutaneous soft tissue and show no internal vascularity. IMPRESSION: Finding may represent tiny ganglion cysts in dorsal aspect of bilateral wrists soft tiss ue at the site of palpable lumps. No solid mass is seen. No drainable fluid collection. Reviewed by: Edgardo Juarez MD on 01/18/2023 11:53 AM PDT Approved by: Edgardo Juarez MD on 01/18/2023 11:53 AM PDT Station ID: [id number]
== END 2023-01-17 14:49 | disposition home or self-care (01) ==
LOC: DI 14:48
PROVIDERS: ATTEND Physician Assistant
DX: R22.31 Localized swelling, mass and lump, right upper limb (principal); R22.32 Localized swelling, mass and lump, left upper limb

== ENCOUNTER 2023-03-17 09:01 | Outpatient (CLI) | payer MEDICARE ==
[2023-03-17 09:11] LABS: BASOPHILS # (AUTO) 0.1 10^3/uL (0.0-0.1); BASOPHILS % (AUTO) 0.4 %; EOSINOPHILS # (AUTO) 0.2 10^3/uL (0.0-0.7); HCT - HEMATOCRIT 46.6 % (37.0-47.0); HGB - HEMOGLOBIN 13.6 g/dL (12.0-16.0); LYMPHOCYTES # (AUTO) 3.6 10^3/uL (1.5-3.5); LYMPHOCYTES % (AUTO) 31.3 %; MEAN CORPUSCULAR HEMOGLOBIN 23.5 pg (27.0-31.0); MEAN CORPUSCULAR HGB CONC 29.2 g/dL (32.0-36.0); MEAN CORPUSCULAR VOLUME 80.6 fL (81.0-99.0); MEAN PLATELET VOLUME 9.1 fL (7.9-10.8); MONOCYTES # (AUTO) 0.8 10^3/uL (0.0-1.0); NEUTROPHILS # (AUTO) 6.7 10^3/uL (1.5-6.6); PLT - PLATELET COUNT 327 10^3/uL (130-450); RED BLOOD COUNT 5.78 10^6/uL (4.20-5.40); RED CELL DISTRIBUTION WIDTH 18.2 % (12.0-15.0); WHITE BLOOD COUNT 11.4 x10^3/uL (4.8-10.8)
[2023-03-17 09:29] LABS: ALBUMIN 3.4 g/dL (3.2-5.5); ALBUMIN/GLOBULIN RATIO 0.7 (1.0-2.2); ALKALINE PHOSPHATASE 73 IU/L (42-121); ALT ALANINE AMINOTRANSFERASE 12 IU/L (10-60); AST ASPARTATE AMINOTRANSFERASE 18 IU/L (10-42); BILIRUBIN,TOTAL 0.6 mg/dL (0.2-1.0); BUN - BLOOD UREA NITROGEN 21 mg/dL (6-20); CALCIUM 9.3 mg/dL (8.5-10.3); CARBON DIOXIDE - CO2 31 mmol/L (21-32); CHLORIDE 98 mmol/L (101-111); CHOL/HDL RATIO 3.1 (<4.4); CHOLESTEROL 172 mg/dL; GFR - MDRD 57 (>89); GLUCOSE 119 mg/dL (70-100); HDL CHOLESTEROL 55 mg/dL; LDL CHOLESTEROL,CALCULATED 94 mg/dL; LDL/HDL RATIO 1.7 (<4.4); SODIUM 139 mmol/L (135-145); TOTAL PROTEIN 8.1 g/dL (6.7-8.2); TRIGLYCERIDES 113 mg/dL; VLDL CHOLESTEROL 23 mg/dL
[2023-03-17 09:41] LABS: THYROID STIMULATING HORMONE 0.52 uIU/mL (0.34-5.60)
[2023-03-17 09:55] LABS: ESTIMATED AVERAGE GLUCOSE 169 mg/dL (70-100); HEMOGLOBIN A1c% 7.5 % (4.27-6.07)
== END 2023-03-17 09:02 | disposition home or self-care (01) ==
LOC: LAB 09:01
PROVIDERS: ATTEND Physician Assistant
DX: E11.22 Type 2 diabetes mellitus with diabetic chronic kidney disease (principal); N18.31 Chronic kidney disease, stage 3a; E78.5 Hyperlipidemia, unspecified; E03.9 Hypothyroidism, unspecified
CPT/HCPCS: 36415; 80053; 80061; 83036; 83721; 84443; 85025

== ENCOUNTER 2023-06-20 10:10 | Outpatient (CLI) | payer MEDICARE ==
[2023-06-20 11:06] LABS: CALCIUM 9.5 mg/dL (8.5-10.3); CREATININE 0.9 mg/dL (0.6-1.3); POTASSIUM 4.4 mmol/L (3.5-4.5)
[2023-06-20 11:54] LABS: ESTIMATED AVERAGE GLUCOSE 166 mg/dL (70-100); HEMOGLOBIN A1c% 7.4 % (4.27-6.07)
== END 2023-06-20 10:11 | disposition home or self-care (01) ==
LOC: LAB 10:10
PROVIDERS: ATTEND Physician Assistant
DX: E11.22 Type 2 diabetes mellitus with diabetic chronic kidney disease (principal)
CPT/HCPCS: 36415; 80048; 83036

== ENCOUNTER 2023-06-29 12:50 | Outpatient (CLI) | payer MEDICARE ==
--- NOTE | 2023-06-29 15:20 | XRAY Report ---
PROCEDURE: Knee 4 View RT INDICATIONS: KNEE PAIN,RIGHT TECHNIQUE: 3 views of the right knee(s) were acquired. COMPARISON: None. FINDINGS: Bones: No fractures or dislocations. No suspicious bony lesions. Moderate medial compartment osteoa rthritic degenerative change with joint space narrowing and osseous hypertrophy. Mild lateral and pat ellofemoral compartment osteoarthritis with osseous hypertrophy. Soft tissues: Small nonspecific knee joint effusion. No suspicious soft tissue calcifications or mas ses. IMPRESSION: Moderate medial compartment, mild lateral compartment and mild patellofemoral compartment osteoarthri tis. Small nonspecific joint effusion. Reviewed by: Liset Ames MD, PhD on 06/29/2023 3:18 PM PDT Approved by: Liset Ames MD, PhD on 06/29/2023 3:18 PM PDT Station ID: [id number]
== END 2023-06-29 12:51 | disposition home or self-care (01) ==
LOC: DI 12:50
PROVIDERS: ATTEND Physician Assistant
DX: M17.11 Unilateral primary osteoarthritis, right knee (principal); M25.461 Effusion, right knee

== ENCOUNTER 2023-07-25 08:00 | Outpatient (CLI) | payer MEDICARE ==
--- NOTE | 2023-07-25 19:16 | XRAY Report ---
PROCEDURE: Knee 1 View BILAT INDICATIONS: RIGHT KNEE PAIN, BILAT AP ONLY FOR COMP TECHNIQUE: 1 AP weightbearing of the knee(s) were acquired. COMPARISON: Right knee radiograph dated 06/29/2023 FINDINGS: Bones: Weightbearing views demonstrate moderate medial femorotibial compartment joint space narrowin g bilaterally. There are also degenerative changes of the lateral femorotibial compartments bilateral ly on this AP view. Marginal osteophytes are seen. No acute osseous abnormalities on this single view . No suspicious osseous lesions. Soft tissues: No suspicious soft tissue calcifications or masses. IMPRESSION: Redemonstration of moderate medial femorotibial compartment joint space narrowing of the bilateral kn ee. Reviewed by: Homero Grajeda MD on 07/25/2023 7:14 PM PST Approved by: Homero Grajeda MD on 07/25/2023 7:14 PM PST Station ID: [id number]
== END 2023-07-25 23:59 | disposition home or self-care (01) ==
LOC: DI.WOS 08:00
PROVIDERS: ATTEND Physician Assistant Surgical
DX: M17.0 Bilateral primary osteoarthritis of knee (principal)

== ENCOUNTER 2023-10-03 15:46 | Outpatient (CLI) | payer MEDICARE ==
--- NOTE | 2023-10-03 16:40 | XRAY Report ---
PROCEDURE: Knee 4 View RT INDICATIONS: RIGHT KNEE PAIN TECHNIQUE: 4 views of the knee(s) were acquired. COMPARISON: None. FINDINGS: Bones: No fractures or dislocations. No suspicious bony lesions. Tricompartmental joint space dillon rowing with associated osteophytosis. Soft tissues: No knee joint effusion. No suspicious soft tissue calcifications or masses. IMPRESSION: No acute bony abnormality. Mild to moderate tricompartmental osteoarthritis. Kellgren-Edil scale of osteoarthritis: 2. Reviewed by: Edgar Castle MD on 10/03/2023 4:39 PM PST Approved by: Edgar Castle MD on 10/03/2023 4:39 PM PST Station ID: [id number]
== END 2023-10-03 15:47 | disposition home or self-care (01) ==
LOC: DI.WOS 15:46
PROVIDERS: ATTEND Physician Assistant Surgical
DX: M17.11 Unilateral primary osteoarthritis, right knee (principal)

== ENCOUNTER 2024-04-04 12:00 | Outpatient (CLI) | payer MEDICARE ==
[2024-04-04 12:15] LABS: BASOPHILS # (AUTO) 0.1 10^3/uL (0.0-0.1); BASOPHILS % (AUTO) 0.7 %; EOSINOPHILS # (AUTO) 0.7 10^3/uL (0.0-0.7); EOSINOPHILS % (AUTO) 5.6 %; HCT - HEMATOCRIT 47.5 % (37.0-47.0); HGB - HEMOGLOBIN 13.7 g/dL (12.0-16.0); LYMPHOCYTES # (AUTO) 3.9 10^3/uL (1.5-3.5); LYMPHOCYTES % (AUTO) 33.2 %; MEAN CORPUSCULAR HEMOGLOBIN 23.6 pg (27.0-31.0); MEAN CORPUSCULAR HGB CONC 28.8 g/dL (32.0-36.0); MEAN CORPUSCULAR VOLUME 81.9 fL (81.0-99.0); MEAN PLATELET VOLUME 9.2 fL (7.9-10.8); MONOCYTES # (AUTO) 0.8 10^3/uL (0.0-1.0); MONOCYTES % (AUTO) 6.5 %; NEUTROPHILS # (AUTO) 6.4 10^3/uL (1.5-6.6); NEUTROPHILS % (AUTO) 53.7 %; PLT - PLATELET COUNT 371 10^3/uL (130-450); WHITE BLOOD COUNT 11.9 x10^3/uL (4.8-10.8)
[2024-04-04 12:34] LABS: ESTIMATED AVERAGE GLUCOSE 166 mg/dL (70-100); HEMOGLOBIN A1c% 7.4 % (4.27-6.07)
[2024-04-04 12:41] LABS: THYROID STIMULATING HORMONE 0.83 uIU/mL (0.34-5.60)
[2024-04-04 12:43] LABS: ALBUMIN 3.8 g/dL (3.2-5.5); ALBUMIN/GLOBULIN RATIO 0.9 (1.0-2.2); ALKALINE PHOSPHATASE 93 IU/L (42-121); ALT ALANINE AMINOTRANSFERASE 10 IU/L (10-60); AST ASPARTATE AMINOTRANSFERASE 12 IU/L (10-42); BILIRUBIN,TOTAL 0.5 mg/dL (0.2-1.0); BUN - BLOOD UREA NITROGEN 22 mg/dL (6-20); CALCIUM 9.8 mg/dL (8.5-10.3); CARBON DIOXIDE - CO2 31 mmol/L (21-32); CHLORIDE 99 mmol/L (101-111); CHOL/HDL RATIO 3.7 (<4.4); CHOLESTEROL 178 mg/dL; CREATININE 1.1 mg/dL (0.6-1.3); GFR - MDRD 51 (>89); GLUCOSE 136 mg/dL (74-104); HDL CHOLESTEROL 48 mg/dL; LDL CHOLESTEROL,CALCULATED 99 mg/dL; LDL/HDL RATIO 2.1 (<4.4); POTASSIUM 4.1 mmol/L (3.5-4.5); SODIUM 137 mmol/L (135-145); TOTAL PROTEIN 7.9 g/dL (6.4-8.9); TRIGLYCERIDES 155 mg/dL; VLDL CHOLESTEROL 31 mg/dL
[2024-04-04 13:07] LABS: CREATININE,URINE 158.6 mg/dL; MICROALBUM/CREATININE RATIO,UR 9.5 ug/mg (<30.0); MICROALBUMIN,URINE 1.5 mg/dL
[2024-04-04 13:15] LABS: PLATELET ESTIMATE, MANUAL NORMAL (130-450,000) (NORMAL); PLATELET MORPHOLOGY NORMAL APPEARANCE (NORMAL); SLIDE REVIEW? Indicated
== END 2024-04-04 12:01 | disposition home or self-care (01) ==
LOC: LAB 12:00
PROVIDERS: ATTEND Physician Assistant
DX: E11.22 Type 2 diabetes mellitus with diabetic chronic kidney disease (principal); E78.5 Hyperlipidemia, unspecified; E03.9 Hypothyroidism, unspecified
CPT/HCPCS: 36415; 80053; 80061; 82043; 82570; 83036; 83721; 84443; 85025